=== PATIENT | male | born 2005 | race Caucasian/White ===

== ENCOUNTER 2023-08-29 10:42 | Emergency (ER) | payer BC, SELFPAY ==
[2023-08-29 10:47] VITALS: BP 136/80; BP 140/80; PULSE 104; PULSE 98; RESP 14; TEMP 36.7; O2SAT 94; O2SAT 97; BMI 25.8
--- NOTE | 2023-08-29 10:58 | PC.NURSE ---
patient has multiple superficial lacs on left hand. Patient states I didn't do it to hurt myself, I did it because I was angry, I've done it in the past. Patient denies suicidal ideation and homicidal ideation
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
== END 2023-08-29 11:17 | disposition home or self-care (01) ==
PROVIDERS: Emergency Provider Emergency Medicine
DX: S60.512A Abrasion of left hand, initial encounter (principal); W26.9XXA Contact with unspecified sharp object(s), initial encounter; Y93.9 Activity, unspecified; Y92.9 Unspecified place or not applicable; Y99.9 Unspecified external cause status
CPT/HCPCS: 99282; 99284

== ENCOUNTER 2024-04-26 22:37 | Emergency (ER) | payer BC, MEDICAID, SELFPAY ==
[2024-04-26 22:55] VITALS: BP 108/57; PULSE 84; O2SAT 97
[2024-04-26 23:00] VITALS: BP 95/36; PULSE 82; RESP 18; O2SAT 96; BMI 25.8
[2024-04-26 23:14] VITALS: TEMP 36.6
--- NOTE | 2024-04-26 23:28 | PC.NURSE ---
patient here for substance use and requesting to see crisis team. Patient changed over into hospital attire and belongings sent to [facility].Patient calm and cooperative during the process denies SI/HI at this time
[2024-04-26 23:30] VITALS: PULSE 77
--- NOTE | 2024-04-26 23:39 | PC.NURSE ---
per patient request, sandwich given with drink. patient calm and cooperative.
--- NOTE | 2024-04-26 23:47 | MHC.EDTECH ---
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
--- NOTE | 2024-04-27 00:10 | ED.GENADULT ---
HPI - General Adult General Chief complaint: ETOH/Substance Use Stated complaint: drug/alcohol use, psych eval, HI/SI Time Seen by Provider: 04/26/24 23:42 Source: patient and EMS Mode of arrival: EMS Limitations: no limitations History of Present Illness HPI narrative: Patient is a 18-year-old male who presents emergency department via EMS for evaluation. He admits to using crack cocaine over the past few days, reportedly last used at 10:00 today. He denies any additional recreational drug or alcohol usage. He admits to having depression, stating that he was just discharged from inpatient psych at [facility] 1 week ago. He has not been taking any of his medications over the past week because ?they are in [place] and I have not been able to get to them?. He denies any suicidal or homicidal ideations. He is requesting assistance with detox into speaking care team regarding his depression. He offers no physical complaints. Related Data Allergies Allergy/AdvReac Type Severity Reaction Status Date / Time No Known Allergies Allergy Verified 04/26/24 23:03 Review of Systems Review of Systems: Yes all other systems are reviewed and are negative [facility] Past Medical History Attestation statement: The following information was validated with the patient. Source: old records reviewed Social History Social History Smoked in Last 30 Days: Yes Substance Use Type: Crack/Cocaine Advance Directives: No Advance Directives Information Provided: Yes Do you have a plan to hurt others: No Plan Physical Exam ED Vital Signs: Vital Signs - 24 hr 04/26/24 23:00 04/26/24 23:14 04/27/24 00:22 Temperature 97.8 F 98.8 F Pulse Rate 82 85 Respiratory Rate 18 16 Blood Pressure 95/36 L 111/50 L Pulse Oximetry 96 99 Oxygen Delivery Method Room Air Room Air BMI result Body Mass Index 25.8 Appearance: Alert.?Oriented to person, place and time. No acute distress.?Normal affect. Eyes: Pupils equal, round and reactive to light.? ENT: Pharynx normal.?? Neck: Normal inspection.? Neck supple.?? CVS: Heart sounds normal. Normal heart rate and rhythm.? Pulses normal.?? Respiratory: No respiratory distress.? Lung sounds clear to auscultation bilaterally?? Abdomen: Soft and non-tender. Normoactive bowel sounds. Skin: Skin warm and dry.? Normal skin color.? Extremities: No lower extremity edema.? Neuro: Moves all extremities spontaneously. Sensation intact bilaterally. CN II-XII intact. No focal neuro deficits. Ambulates with normal steady gait. Medical Decision Making Medical Decision Making [facility] Narrative: Patient is a 18-year-old male with past medical history of substance use disorder, depression who presents emergency department for evaluation. He is requesting assistance with detox, he reports his only recreational drug usage is crack cocaine which he is smoking, denies any injection or opioid use. He is noted to be lethargic, falling asleep while talking, arouses to verbal stimuli but quickly falls back to sleep. Pupils are pinpoint. Is without hypoxia or bradypnea. He admits to increased depression, based on arguments with his significant other, but denies SI/HI. Plan to obtain basic labs for medical clearance, and will refer to care team/recovery team for further assistance and safe disposition. Differential Diagnosis Differential Diagnoses: The differential diagnosis associated with the presentation includes (See narrative above and below) Admission/Observation Consideration of admission/observation: Escalation of care including admission/observation considered Patient is being observed in the Emergency Department for depression and substance use disorder. Observation time was started at 12:15 on 04/27/24..?The patient is currently stable and non-toxic appearing. Observation is being initiated in the Emergency Department to allow time to help differentiate if the patient's depression is due to Substance Induced Mood Disorder and Anxiety versus Major Depressive Disorder, Bipolar Fatou, Bipolar Depression, and Schizophrenia. The patient will receive frequent psychiatric assessments from the provider as well as from nursing staff. The patient will also be monitored for the need of PRN agitation medications such as Haldol, Ativan, and Benadryl. Lab Data [facility] Lab Attestation statement: I reviewed the patient's lab results. Mild hypokalemia at 3.2, will replace orally with 40 mEq. No NARENDRA, no additional electrolyte derangement. Ethanol Level not detectable. 04/27/24 00:33 04/27/24 00:33 Labs: Lab Results 04/27/24 Range/Units 00:33 WBC 13.8 H (4.8-10.8) X10*3/uL RBC 4.71 (4.60-5.80) X10*6/uL Hgb 14.0 (14.0-18.0) g/dl Hct 41.7 L (42.0-52.0) % MCV 88.5 (80.0-98.0) fL MCH 29.7 (27.0-33.0) pg MCHC 33.6 (31.0-36.0) g/dl RDW 12.8 (11.0-16.0) % Plt Count 296 (160-400) X10*3/uL MPV 9.1 L (9.4-12.4) fL Immature Gran % (Auto) 0.2 (0.0-0.4) % Neut % (Auto) 65.3 (45-73) % Lymph % (Auto) 26.2 (20-40) % Phelps % (Auto) 6.8 (2-11) % Eos % (Auto) 1.0 (0-4) % Baso % (Auto) 0.5 (0-2) % Lymph # (Auto) 3.6 (1.2-4.9) X10*3/uL Phelps # (Auto) 0.9 (0.1-1.2) X10*3/uL Eos # (Auto) 0.1 (0.0-0.4) X10*3/uL Baso # (Auto) 0.1 (0.0-0.2) X10*3/uL Abs Immat Gran (auto) 0.03 (0.00-0.03) X10*3/uL Absolute Neuts (auto) 9.0 H (2.0-8.3) x10*3/uL Absolute Nucleated RBC 0.000 (0.0-0.012) X10*3/uL Nucleated RBC % (auto) 0.0 (0.0-0.2) /100WBC Sodium 141 (135-145) mmol/L Potassium 3.2 L (3.3-5.1) mmol/L Chloride 104 (96-108) mmol/L Carbon Dioxide 26 (22-29) mmol/L Anion Gap 14 (12-20) BUN 16 (9-16) mg/dL Creatinine 0.87 (0.5-1.4) mg/dL Estim Creat Clear Calc 131.0 Estimated GFR > 60 Random Glucose 120 H (60-115) mg/dL Calcium 9.8 (8.4-10.2) mg/dL Ethyl Alcohol < 10 mg/dL Independent Historian Clinical information obtained from an independent historian. History obtained from or confirmed by: EMS Social Determinants Patient?s care significantly limited by Social Determinants of Health including: Alcoholism and drug addiction in family Discharge Plan Discharge Clinical Impression: Depression, Substance use disorder Patient Disposition: Still a Patient Print Language: Portuguese
[2024-04-27 00:22] VITALS: BP 111/50; PULSE 85; RESP 16; TEMP 37.1; O2SAT 99
--- NOTE | 2024-04-27 00:35 | MHC.EDTECH ---
Patient blood drawn and sent to lab .
[2024-04-27 00:37] LABS: MANUAL DIFF FLAG NO
[2024-04-27 00:44] LABS: Basophils Absolute Auto 0.1 X10*3/uL (0.0-0.2); Basophils Percent Auto 0.5 % (0-2); Eosinophils Absolute Auto 0.1 X10*3/uL (0.0-0.4); Hematocrit 41.7 % (42.0-52.0); Imm Gran Abs Auto 0.03 X10*3/uL (0.00-0.03); Imm Gran Pct Auto 0.2 % (0.0-0.4); Lymphocytes Absolute Auto 3.6 X10*3/uL (1.2-4.9); Lymphocytes Percent Auto 26.2 % (20-40); Mean Corpuscular HGB Conc 33.6 g/dl (31.0-36.0); Mean Corpuscular Hemoglobin 29.7 pg (27.0-33.0); Mean Corpuscular Volume 88.5 fL (80.0-98.0); Mean Platelet Volume 9.1 fL (9.4-12.4); Monocytes Absolute Auto 0.9 X10*3/uL (0.1-1.2); Monocytes Percent Auto 6.8 % (2-11); Neutrophils Percent Auto 65.3 % (45-73); Platelet Count 296 X10*3/uL (160-400); Red Blood Count 4.71 X10*6/uL (4.60-5.80); Red Cell Distribution Width 12.8 % (11.0-16.0); White Blood Count 13.8 X10*3/uL (4.8-10.8)
[2024-04-27 00:56] LABS: Anion Gap 14 (12-20); Blood Urea Nitrogen 16 mg/dL (9-16); Calcium 9.8 mg/dL (8.4-10.2); Carbon Dioxide 26 mmol/L (22-29); Chloride 104 mmol/L (96-108); Estimated Glomerular Filt Rate > 60; Ethanol < 10 mg/dL; Glucose Random 120 mg/dL (60-115); Potassium 3.2 mmol/L (3.3-5.1); Sodium 141 mmol/L (135-145)
[2024-04-27 01:51] LABS: Salicylate < 5.0 mg/dL (15-30)
[2024-04-27] MEDS: Potassium Chloride Packet 20 MEQ PACKET 40 MEQ PO (01:56)
--- NOTE | 2024-04-27 02:05 | PC.NURSE ---
patient sleeping, chest rise and chest fall noted. RR are 18 with o2 98% on room air.
[2024-04-27 05:20] VITALS: BP 112/58; PULSE 61; RESP 16; TEMP 36.9; O2SAT 97
--- NOTE | 2024-04-27 05:21 | MHC.EDTECH ---
Patient awake ,vitals taken ,Patient drank 240 ml juice .
[2024-04-27 10:34] LABS: Appearance Urine Turbid; Color Urine Yellow; Glucose Urine UA Negative (Negative); Leukocyte Esterase Urine Negative (Negative); Nitrite Urine Negative (Negative); PH 7.5 (5.0-9.0); Urine Blood Negative (Negative); Urine Ketones Negative (Negative); Urine Protein Negative (Neg-Trace)
[2024-04-27 10:54] LABS: Amphetamine Screen Urine Not Detected (Not Detect); Barbiturates, Urine Not Detected (Not Detect); Benzodiazepines Screen Urine Not Detected (Not Detect); Buprenorphine Scr Not Detected (Not Detect); Cannabinoid Screen Urine Not Detected (Not Detect); Cocaine Screen Urine POSITIVE (Not Detect); Fentanyl, urine Not Detected (Not Detect); Methadone Screen, Urine Not Detected (Not Detect); Opiate Screen Urine Not Detected (Not Detect); Oxycodone Screen Urine Not Detected (Not Detect); Phencyclidine Screen Urine Not Detected (Not Detect)
--- NOTE | 2024-04-27 12:34 | MHC.RECOVRN ---
Briefly met with pt in [id number] after cleared by CARE Team. Pt laying in bed, eyes closed, wakes to touch, irritable. Pt reports cocaine, INH, use, 1 ounce daily x 2 weeks. Pt interested in ATS, willing to go to any facility. Difficult to engage in further conversation. T/w will conduct bedsearch.
[2024-04-27 12:50] VITALS: BP 100/37; PULSE 72; RESP 18; TEMP 36.6; O2SAT 97
--- NOTE | 2024-04-27 14:53 | MHC.RECOVRN ---
Pt accepted to [facility] pending second authorization as pt does not currently have health insurance. Eri, iso coordinator, informed t/w it will be an evening admission if approved. CARE Team aware.
--- NOTE | 2024-04-27 15:29 | PC.NURSE ---
Called [facility] in POD, gave RN to RN report.
[2024-04-27 15:39] VITALS: BP 116/60; PULSE 90; RESP 14; TEMP 36.7; O2SAT 94
--- NOTE | 2024-04-27 19:17 | PC.NURSE ---
patient appears in no distress at present resting in room. patient appears in no distress.
== END 2024-04-27 20:28 | disposition other institution (70) ==
PROVIDERS: Emergency Provider Internal Medicine
DX: F32.A Depression, unspecified (principal); F19.988 Other psychoactive substance use, unspecified with other psychoactive substance-induced disorder
CPT/HCPCS: 36415; 80048; 80179; 80307; 81003; 85025; 99284; S9485